=== PATIENT | male | born 1995 | race Caucasian/White ===

== ENCOUNTER 2025-01-08 09:53 | Outpatient (REF) | payer OTHER, SELFPAY ==
--- OUTSIDE RECORDS SUMMARY | 2025-01-08 10:47 | XMS_ITS | Encounter Summary ---
Author Organization [employer] Address [address] [place] [address] Care Team Providers Care Rough Rice Tender Name Role Phone Perri Cruz MD Primary Care Provider [phone] Reason for Visit * Reason Onset Date Comments Chart Prep 01/07/2025 Encounter Details Date Type Department Care Team ([facility] st Contact Info) Description 01/07/2025 Telephone [facility] [address] [place] [address] Perri Cruz MD [address] [place] [address] Chart Prep Social History Tobacco Use Types Packs/Day Years Used Date Smoking Tobacco: Never Passive Smoke Exposure: Never Smokeless Tobacco: Never Alcohol Use Standard Drinks/Week Comments Yes 0 (1 standard drink = 0.6 oz pur e alcohol) socially only Alcohol Answer Date Recorded Frequency of Alcohol Consumption Not on file 01/06/2024 Average Number of Drinks Not on file 024 Frequency of Binge Drinking Not on file 12/18 Score 0 01/06/2024 Depression Answer Date Recorded Patient Health Questionnaire-9 Score 0 01/08/2025 Patient Health Questionnaire-9 Score 0 01/08/2025 Last PHQ-9: Questionnaire Data Not on file 0 01/08/2025 Housing Stability Answer Date Recorded What is your housing situation today? I have marcie burch 12/31/[address] you li ve. Do you have problems with any of the following? None of the above 12/31/2024 Food Insecurity Answer Date Recorded Within the past 12 months, y ou worried that your food would run out before you got money to buy more: Never True 12/31/2024 Within the past 12 months,th e food you bought just didn't last and you didn't have enough money to get more: Never True Transportation Answer Date Recorded In the past 12 months, has l ack of transportation kept you from medical appts, meetings, work or from getting things needed for daily living? No 12/31/2024 Utilities Answer Date Recorded In the past 12 months, has t he electric, gas, oil or water company threatened to shut off services in your home? 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 Not on file Not on file documented as of this encounter Miscellaneous Notes * Telephone Encounter - Gabriella Garza MA - 01/07/2025 2:26 PM EDT Chart Prep Labs: not applicable Images: not applicable Referrals: complete Vaccines due: Hep B and HPV Screenings: not applicable Overdue care gaps: SBIRT, PHQ-9, Disability screen, and Tobacco documented in this encounter Plan of Treatment Not on file documented as of this encounter Visit Diagnoses Not on filedocumented in this encounter Additional Health Concerns Assessment Noted Time PHQ-9 Depression Total Score: 0 01/06/20 24 10:17 AM EDT documented as of this encounter Care Teams Rough Rice Tender Relationship Specialty Start Date End Date Perri Cruz MD [address] [place] [address] PCP - General Internal Medicine 11/23/22 documented as of this encounter
--- OUTSIDE RECORDS SUMMARY | 2025-01-08 10:47 | XMS_ITS | Clinical Summary ---
Author Organization [facility] Address [address] [place] [address] Care Team Providers Care Fox Raiser Name Role Phone Gogo Sim MD Primary Care Provider Social History Tobacco Use Types Packs/Day Years Used Date Smoking Tobacco: Never Assessed Sex and Gender Information Value Date Recorded Sex Assigned at Not on file Legal Sex Male 11:38 AM EST Gender Identity Not on file Sexual Orientation Not on file Plan of Treatment Health Maintenance Due Date Last Done Comments DTaP,Tdap,and Td Vaccines (1 - Tdap) 2013 Hepatitis B Vaccines (1 of 3 - 19+ 3-dose series) 2013 HIV Screening 05/18/2022 Hepatitis C Screening 05/18/2022 Social Influencers of Health Screening 05/18/2022 COVID-19 Vaccine (1 - 2023-2 5 season) 2024 Depression Screening 06/20/2024 Influenza Vaccine (#1) 2025 03/01/2018 HIB Vaccines Aged Out No longer eligi ble based on patient's age to complete this topic HPV Vaccines Aged Out No longer eligi ble based on patient's age to complete this topic Hepatitis A Vaccines Aged Out No long er eligible based on patient's age to complete this topic IPV Vaccines Aged Out No longer eligi ble based on patient's age to complete this topic MMR Vaccines Aged Out No longer eligi ble based on patient's age to complete this topic Meningococcal ACWY Vaccine Aged Out N o longer eligible based on patient's age to complete this topic Meningococcal B Vaccine Aged Out No l onger eligible based on patient's age to complete this topic Pneumococcal Vaccine: Pediat rics (0 to 5 Years) and At-Risk Patients (6 to 49 Years) Aged Out No longer eligi ble based on patient's age to complete this topic RSV Immunization Patients Un stephani 20 months Aged Out No longer eligible b ased on patient's age to complete this topic Varicella Vaccines Aged Out No longer eligible based on patient's age to complete this topic Care Teams Fox Raiser Relationship Specialty Start Date End Date Gogo Sim MD PCP - General Internal Medicine 02/28/18
[2025-01-08 14:10] LABS: MANUAL DIFF FLAG NO
[2025-01-08 14:16] LABS: Hematocrit 41.3 % (42.0-52.0); Hemoglobin 14.0 g/dl (14.0-18.0); Imm Gran Abs Auto 0.01 X10*3/uL (0.00-0.03); Imm Gran Pct Auto 0.2 % (0.0-0.4); Lymphocytes Absolute Auto 1.5 X10*3/uL (1.2-4.9); Mean Corpuscular HGB Conc 33.9 g/dl (31.0-36.0); Mean Corpuscular Hemoglobin 29.9 pg (27.0-33.0); Mean Corpuscular Volume 88.2 fL (80.0-98.0); NRBC Abs Auto 0.000 X10*3/uL (0.0-0.012); NRBC Pct Auto 0.0 /100WBC (0.0-0.2); Platelet Count 194 X10*3/uL (160-400); Red Blood Count 4.68 X10*6/uL (4.60-5.80); White Blood Count 4.6 X10*3/uL (4.8-10.8)
[2025-01-08 14:51] LABS: Alanine Aminotransferase 44 U/L (0-40); Albumin Level 4.5 g/dL (3.5-5.0); Alkaline Phosphatase 42 U/L (39-117); Anion Gap 11 (12-20); Aspartate Amino Transferase 34 U/L (5-37); Blood Urea Nitrogen 19 mg/dL (9-16); Calcium 9.4 mg/dL (8.4-10.2); Carbon Dioxide 27 mmol/L (22-29); Chloride 108 mmol/L (96-108); Cholesterol 205 mg/dL (<200); Estimated Glomerular Filt Rate > 60; HDL Cholesterol 57 mg/dL (>40); Potassium 4.5 mmol/L (3.3-5.1); Sodium 141 mmol/L (135-145); Total Protein 7.0 g/dL (6.5-8.0); Triglycerides 56 mg/dL (<150)
== END 2025-01-08 09:54 | disposition home or self-care (01) ==
LOC: HO.CHCLDS 09:53
PROVIDERS: Visit Provider Pediatrics
DX: Z00.00 Encounter for general adult medical examination without abnormal findings (principal)
CPT/HCPCS: 36415; 80048; 80061; 80076; 85025